=== PATIENT | female | born 1995 ===

== ENCOUNTER 2020-05-19 13:52 | Outpatient (REF) | payer OTHER, SELFPAY ==
[2020-05-22 14:06] LABS: SARS-CoV-2 RNA Undetected (Undetected); SARS-CoV-2 Specimen Source Nasopharynx
== END 2020-05-19 14:12 ==
LOC: NCHCN 13:52
PROVIDERS: Visit Provider Family Medicine
DX: Z20.828 Contact with and (suspected) exposure to other viral communicable diseases (principal)
CPT/HCPCS: U0003